=== PATIENT | female | born 1985 | race American Indian/Alaskan Native ===

== ENCOUNTER 2018-11-24 02:07 | Emergency (ER) | payer OTHER ==
[2018-11-24 02:26] VITALS: RESP 20; O2SAT 100
--- NOTE | 2018-11-24 02:35 | C.PDOC ---
History Of Present Illness 33 year old female presents to the ED c/o severe nausea, vomit and RLQ abdominal pain that started tonight at 22:00. Patient denies fever, chills, diarrhea, back pain, dysuria, vaginal bleeding, vaginal discharge. Time Seen by Provider: 11/24/18 02:34 Chief Complaint (Nursing): Abdominal Pain History Per: Patient History/Exam Limitations: no limitations Onset/Duration Of Symptoms: Hrs (22:00) Current Symptoms Are (Timing): Still Present Severity: Severe Location Of Pain/Discomfort: RLQ Quality Of Discomfort: "Pain" Associated Symptoms: Nausea, Vomiting. denies: Diarrhea, Urinary Symptoms Recent travel outside of the [place]: No Additional History Per: Patient Abnormal Vaginal Bleeding: No Past Medical History Reviewed: Historical Data, Nursing Documentation, Vital Signs Vital Signs: Last Vital Signs Temp 97.5 F L 11/24/18 02:21 Pulse 66 11/24/18 02:21 Resp 20 11/24/18 02:21 BP 127/91 H 11/24/18 02:21 Pulse Ox 100 11/24/18 02:21 - Medical History PMH: No Chronic Diseases Surgical History: No Surg Hx Family History: States: Unknown Family Hx - Social History Hx Alcohol Use: Yes Hx Substance Use: No - Immunization History Hx Tetanus Toxoid Vaccination: No Hx Influenza Vaccination: No Hx Pneumococcal Vaccination: No Review Of Systems Constitutional: Negative for: Fever, Chills Cardiovascular: Negative for: Chest Pain, Palpitations Respiratory: Negative for: Cough, Shortness of Breath Gastrointestinal: Positive for: Nausea, Vomiting, Abdominal Pain. Negative for: Diarrhea Musculoskeletal: Negative for: Back Pain Neurological: Negative for: Weakness, Numbness, Headache Physical Exam - Physical Exam Appears: Non-toxic Skin: Warm, Dry Head: Normacephalic Eye(s): bilateral: Normal Inspection Oral Mucosa: Moist Neck: Supple Chest: Symmetrical Cardiovascular: Rhythm Regular Respiratory: No Rales, No Rhonchi, No Wheezing Gastrointestinal/Abdominal: Soft, Tenderness (RLQ), No Guarding, No Rebound Back: Normal Inspection Extremity: Bilateral: Atraumatic, Normal Color And Temperature, Normal ROM Neurological/Psych: Oriented x3, Normal Speech, Normal Cognition Gait: Steady ED Course And Treatment - Laboratory Results Result Diagrams: 11/24/18 03:10 11/24/18 03:10 O2 Sat by Pulse Oximetry: 100 (ON RA) Pulse Ox Interpretation: Normal - CT Scan/US Ct abd/pelvis Other Rad Studies (CT/US): Read By Radiologist, Radiology Report Reviewed CT/US Interpretation: CT SCAN OF THE ABDOMEN AND PELVIS WITH CONTRAST. CLINICAL HISTORY: Right lower quadrant abdominal pain. TECHNIQUE: Multiple axial and coronal CT images were obtained through the abdomen and pelvis after administration of intravenous contrast material. COMMENTS: Unremarkable intrauterine device. Minimal subsegmental atelectatic airspace disease in the right lower lobe. 6.5x4.7 cm right ovarian uncomplicated cyst. Minimal amount of free pelvic fluid is noted. Mild diffuse thickening of the bladder. Minimal right pleural effusion. 3.8 cm right Bartholin gland cyst. Moderate diffuse spondylosis. The liver is of uniform attenuation without mass or defect. There is no intra or extrahepatic biliary ductal dilatation. The spleen is normal. The gallbladder is within normal limits. The pancreas is of normal contour and attenuation characteristics. There is no evidence of adrenal mass. Both kidneys demonstrate prompt and equal nephrograms. The kidneys are normal in size, shape and configuration. There is no evidence of renal or ureteral mass. No renal or ureteral calculi are identified. There is no hydroureter or hydronephrosis. No evidence for appendicitis. There is no bowel wall thickening. No evidence for small or large bowel obstruction. There is no evidence of intrinsic or extrinsic bladder mass. Images of the lung bases show no evidence of pleural or parenchymal mass. There are no pleural effusions. The bony structures are free of lytic or blastic lesions. IMPRESSION: Unremarkable intrauterine device. Minimal subsegmental atelectatic airspace disease in the right lower lobe. 6.5x4.7 cm right ovarian uncomplicated cyst. Minimal amount of free pelvic fluid is noted. Mild diffuse thickening of the bladder. Minimal right pleural effusion. 3.8 cm right Bartholin gland cyst. Moderate diffuse spondylosis. Thank you for your kind referral of this patient. . Electronically signed on Nov 24, 2018 5:32:47 AM EST by: Beth Keane M.D., Certified by [facility], [facility], Neuroradiology Progress Note: Plan: - Labs. - Pepcid 20 mg IVP. - IV fluids. - Zofran 4 mg IVP. - UA Reevaluation Time: 05:47 Reassessment Condition: Improved Disposition Counseled Patient/Family Regarding: Studies Performed, Diagnosis, Need For Followup, Rx Given - Disposition Referrals: [facility] [Outside] [facility] [Outside] Disposition: HOME/ ROUTINE Disposition Time: 02:34 Condition: FAIR Additional Instructions: Please return if symptoms recur Prescriptions: Ondansetron ODT [Zofran ODT] 1 odt PO BID PRN #6 odt PRN Reason: Nausea/Vomiting Instructions: Ovarian Cyst (DC) Forms: [address] (French) - Clinical Impression Clinical Impression: Abdominal pain, Ovarian cyst - Scribe Statement The provider has reviewed the documentation as recorded by the Scribe Teofilo Lees All medical record entries made by the Scribe were at my direction and personally dictated by me. I have reviewed the chart and agree that the record accurately reflects my personal performance of the history, physical exam, medical decision making, and the department course for this patient. I have also personally directed, reviewed, and agree with the discharge instructions and disposition.
[2018-11-24] MEDS ORDERED: Sodium Chloride 0.9% 1,000 ML IV ONE (02:43)
[2018-11-24] MEDS ORDERED: Sodium Chloride 0.9% 1,000 ML ONE (02:47)
[2018-11-24 02:48] LABS: HCG,QUALITATIVE URINE NEGATIVE (NEGATIVE)
[2018-11-24 02:51] LABS: SQUAMOUS EPITHIAL 1 /hpf (0-5); URINE BILIRUBIN NEGATIVE (NEGATIVE); URINE BLOOD NEGATIVE (NEGATIVE); URINE CLARITY Hazy (Clear); URINE COLOR Yellow (YELLOW); URINE GLUCOSE (UA) NORMAL (Normal); URINE LEUKOCYTE ESTERASE NEG Leu/uL (Negative); URINE PROTEIN NEGATIVE (NEGATIVE); URINE UROBILINOGEN NORMAL mg/dL (0.2-1.0)
[2018-11-24 03:13] LABS: BASO % 0.7 % (0.0-2.0); EOS % 0.5 % (0.0-4.0); HEMOGLOBIN 10.7 g/dL (11.0-16.0); LYMPH % 19.3 % (20.0-40.0); MEAN CELL VOLUME 68.3 fL (81.0-99.0); MEAN CORPUSCULAR HEMOGLOBIN 22.1 pg (27.0-31.0); MEAN CORPUSCULAR HGB CONC 32.3 g/dL (33.0-37.0); MEAN PLATELET VOLUME 8.2 fL (7.2-11.7); MONO # 0.4 K/uL (0.0-0.8); MONO % 8.9 % (0.0-10.0); NEUT # 3.5 K/uL (1.8-7.0); NEUT % 70.6 % (50.0-75.0); RBC 4.84 Mil/uL (3.80-5.20); RED CELL DISTRIBUTION WIDTH 14.9 % (11.5-14.5)
[2018-11-24 03:24] LABS: INR 1.2
[2018-11-24 03:26] LABS: ALB/GLOB RATIO 1.4 (1.0-2.1); ALBUMIN 4.7 g/dL (3.5-5.0); ALT/SGPT 38 U/L (9-52); AST/SGOT 50 U/L (14-36); BLOOD UREA NITROGEN 12 mg/dL (7-17); CALCIUM 9.5 mg/dl (8.6-10.4); GFR NON-AFRICAN AMERICAN > 60; LIPASE 21 U/L (23-300)
[2018-11-24] MEDS ORDERED: Iodixanol 320 MG/ML 100 ML BOTTLE IV ONE (03:49)
[2018-11-24 06:02] VITALS: BP 118/84; PULSE 68; TEMP 98.1
--- NOTE | 2018-11-24 18:32 | CT ---
Date of service: 11/24/2018 PROCEDURE: CT Abdomen and Pelvis with contrast HISTORY: rlq pain COMPARISON: None. TECHNIQUE: Contrast dose: 100 mL Visipaque 320 Radiation dose: Total exam DLP = 748.29 mGy-cm. This CT exam was performed using one or more of the following dose reduction techniques: Automated exposure control, adjustment of the mA and/or kV according to patient size, and/or use of iterative reconstruction technique. FINDINGS: LOWER THORAX: Unremarkable. LIVER: Unremarkable. No gross lesion or ductal dilatation. GALLBLADDER AND BILE DUCTS: Unremarkable. PANCREAS: Unremarkable. No gross lesion or ductal dilatation. SPLEEN: Unremarkable. ADRENALS: Unremarkable. No mass. KIDNEYS AND URETERS: Unremarkable. No hydronephrosis. No solid mass. VASCULATURE: Unremarkable. No aortic aneurysm. No aortic atherosclerotic calcification or mural plaque present. BOWEL: Unremarkable. No obstruction. No gross mural thickening. APPENDIX: Normal appendix. PERITONEUM: Unremarkable. No free fluid. No free air. LYMPH NODES: Unremarkable. No enlarged lymph nodes. BLADDER: Unremarkable. REPRODUCTIVE: Intrauterine device noted centrally within the uterus. Right adnexal cyst, likely ovarian, measuring 5.1 cm in greatest dimension. Recommend correlation with pelvic ultrasound. BONES: No acute fracture. OTHER FINDINGS: 2.8 cm right Bartholin's gland cyst. IMPRESSION: 5.1 cm right adnexal cyst, likely ovarian. Intrauterine device noted. 2.8 cm right Bartholin's gland cyst. The preliminary findings for this examination were reported by [facility] at 5:32 a.m. on 11/24/2018. There is concurrence of this report with the preliminary findings.
== END 2018-11-24 06:08 | disposition home or self-care (01) ==
LOC: C.ER 02:07
DX: R10.9 Unspecified abdominal pain (principal); N83.201 Unspecified ovarian cyst, right side
CPT/HCPCS: 74177; 80053; 81001; 83690; 84703; 85025; 85610; 85730; 96361; 96374; 96375; 99284; J2405; J7030; Q9967